=== PATIENT | female | born 1985 | race Caucasian/White ===

== ENCOUNTER 2016-08-12 02:47 | Inpatient (IN) | payer BC ==
[2016-08-12] VITALS (24 sets, daily range): BP systolic 18–138; BP diastolic 59–86; PULSE 71–104; TEMP 97.5–98.7
[~2016-08-12] VITALS: Ht 162.6 cm; Wt 121.8 kg
[2016-08-12] MEDS ORDERED: PRENATAL1 TA7 PO (02:59)
[2016-08-12] MEDS ORDERED: MOTRIN 800800 MG/TAB PO (03:29)
[2016-08-12] MEDS ORDERED: PERCOCET 325 MG1 TA2 PO (03:29)
[2016-08-12 04:48] LABS: BASO % 0.3 % (0.0-2.0); EOS # 0.1 (0.0-0.7); EOS % 0.5 % (0-4.0); GRAN % 68.2 % (42.2-75.2); LYMPH # 3.3 (1.2-3.4); LYMPH % 24.7 % (20.0-51.0); MEAN CELL VOLUME 92 fl (80.0-100.0); MEAN CORPUSCULAR HGB CONC 33 g/dl (33.0-37.0); MEAN PLATELET VOLUME 11.1 fl (7.4-10.4); MONO # 0.7 (0.1-0.6); MONO % 5.6 % (1.7-9.3); PLATELET COUNT 241 K/mm3 (130-400); RED BLOOD COUNT 3.73 M/mm3 (4.10-5.30); REDCELL DISTRIBUTION WIDTH-CV 14.1 % (11.5-14.5); WHITE BLOOD COUNT 13.2 K/mm3 (4.8-10.8)
[2016-08-12 04:50] LABS: HEMOGLOBIN 11.2 g/dl (12.5-16.0); MEAN CORPUSCULAR HEMOGLOBIN 30 pg (27.0-31.0)
[2016-08-12 04:51] LABS: HEMATOCRIT 34.4 % (37.0-47.0)
[2016-08-13 04:33] VITALS: BP 98/64; PULSE 74; TEMP 97.7
[2016-08-13 07:00] VITALS: BP 115/78; PULSE 71; TEMP 98.4
[2016-08-13 15:52] VITALS: BP 122/78; PULSE 70; TEMP 98
[2016-08-13 20:00] VITALS: BP 128/86; PULSE 78; TEMP 97.8
[2016-08-14 10:30] VITALS: BP 120/72; PULSE 68; TEMP 98.3
== END 2016-08-14 13:00 | disposition home or self-care (01) | DRG 775 ==
LOC: LDRO 02:47 → OB 03:10 → LDR 03:10 → OB 08:30
PROVIDERS: Obstetrics & Gynecology
PROC: 10E0XZZ Delivery of Products of Conception, External Approach (ICD-10-PCS; principal; 2016-08-12)
DX: O26.893 Other specified pregnancy related conditions, third trimester (principal); Z68.42 Body mass index [BMI] 45.0-49.9, adult; O99.214 Obesity complicating childbirth; E66.9 Obesity, unspecified; K21.9 Gastro-esophageal reflux disease without esophagitis; Z3A.38 38 weeks gestation of pregnancy; Z37.0 Single live birth
CPT/HCPCS: J2590; J7120

== ENCOUNTER → 2016-08-17 | Outpatient (CLI) | payer BC ==
[~2016-08-17] MED LIST: IBU800 M1 PO; MOTRIN 800800 MG/TAB PO; PERCOCET 325 MG1 TA2 PO; PRENATAL1 TA7 PO
== END ==
LOC: OLC 15:04
DX: Z39.1 Encounter for care and examination of lactating mother (principal); Z71.89 Other specified counseling

== ENCOUNTER 2016-09-02 18:12 | Emergency (ER) | payer BC ==
[~2016-09-02] VITALS: Ht 162.6 cm; Wt 112.7 kg
[~2016-09-02 18:12] MED LIST changes: -IBU800 M1 PO
[2016-09-02 18:17] VITALS: TEMP 98
[2016-09-02] MEDS ORDERED: IBU800 M1 PO (18:29)
[2016-09-02 19:19] VITALS: BP 100/80; PULSE 92
== END 2016-09-02 19:19 | disposition home or self-care (01) ==
LOC: COL.ER 18:12
DX: S93.601A Unspecified sprain of right foot, initial encounter (principal); W01.198A Fall on same level from slipping, tripping and stumbling with subsequent striking against other object, initial encounter; Y92.009 Unspecified place in unspecified non-institutional (private) residence as the place of occurrence of the external cause

== ENCOUNTER 2017-02-17 13:17 | Emergency (ER) | payer OTHER, BC ==
[~2017-02-17] VITALS: Ht 162.6 cm; Wt 102.3 kg
[~2017-02-17 13:17] MED LIST changes: +IBU800 M1 PO
[2017-02-17 13:25] VITALS: BP 127/78; TEMP 98.5
[2017-02-17 15:12] VITALS: PULSE 90
== END 2017-02-17 15:14 | disposition home or self-care (01) ==
LOC: COL.ER 13:17
DX: S80.02XA Contusion of left knee, initial encounter (principal); V43.52XA Car driver injured in collision with other type car in traffic accident, initial encounter

== ENCOUNTER 2019-04-09 16:01 | Emergency (ER) | payer BC ==
[~2019-04-09] VITALS: Ht 162.6 cm; Wt 103.6 kg
[2019-04-09 16:26] VITALS: BP 110/62
[2019-04-09 19:25] VITALS: PULSE 92; TEMP 99.4
[2019-04-09] MEDS ORDERED: DESYREL 100MG100 MG PO (19:25)
[2019-04-09 19:31] LABS: STREP SCREEN NEGATIVE
[2019-04-09] MEDS ORDERED: TAMIFLU 75MG75 MG PO (19:33)
== END 2019-04-09 19:36 | disposition home or self-care (01) ==
LOC: COL.ER 16:01
PROVIDERS: Nurse Practitioner
DX: J11.1 Influenza due to unidentified influenza virus with other respiratory manifestations (principal); Z88.0 Allergy status to penicillin; Z88.1 Allergy status to other antibiotic agents

== ENCOUNTER 2019-11-11 19:08 | Emergency (ER) | payer BC ==
[~2019-11-11] VITALS: Ht 162.6 cm; Wt 99.5 kg
[~2019-11-11 19:08] MED LIST changes: +DESYREL 100MG100 MG PO; +TAMIFLU 75MG75 MG PO
[2019-11-11 19:18] VITALS: TEMP 98.3
[2019-11-11] MEDS ORDERED: PROZAC40 MG PO (19:35)
[2019-11-11] MEDS ORDERED: MACRODANTIN100 PO (19:36)
[2019-11-11] MEDS ORDERED: TYLENOL W/COD1 UDTAB PO (19:36)
[2019-11-11 20:08] LABS: COLLECTION METHOD CLEAN CATCH
[2019-11-11 20:12] LABS: BASO % 0.4 % (0.0-2.0); EOS # 0.2 (0.0-0.7); EOS % 1.5 % (0-4.0); GRAN # 7.5 (1.4-6.5); GRAN % 67.9 % (42.2-75.2); HEMOGLOBIN 12.1 g/dl (12.5-16.0); LYMPH # 2.8 (1.2-3.4); LYMPH % 25.4 % (20.0-51.0); MEAN CELL VOLUME 93 fl (80.0-100.0); MEAN CORPUSCULAR HEMOGLOBIN 31 pg (27.0-31.0); MEAN CORPUSCULAR HGB CONC 33 g/dl (33.0-37.0); MEAN PLATELET VOLUME 10.6 fl (7.4-10.4); MONO # 0.5 (0.1-0.6); MONO % 4.5 % (1.7-9.3); PLATELET COUNT 252 K/mm3 (130-400); RED BLOOD COUNT 3.96 M/mm3 (4.10-5.30); REDCELL DISTRIBUTION WIDTH-CV 12.5 % (11.5-14.5)
[2019-11-11 20:26] LABS: ALBUMIN 4.3 gm/dL (3.5-5.0); BILIRUBIN,TOTAL 0.5 mg/dL (0.0-1.0); CREATININE, serum 0.89 (0.52-1.25); POTASSIUM 3.9 mmol/L (3.4-5.0); TOTAL PROTEIN 7.3 gm/dL (6.4-8.2)
[2019-11-11 20:40] LABS: MUCOUS Present /lpf; PH 5 (5-8); URINE APPEARANCE Hazy; URINE BACTERIA Rare /hpf; URINE BILIRUBIN Negative (NEGATIVE); URINE BLOOD 2+ (NEGATIVE); URINE COLOR Yellow; URINE GLUCOSE Negative (NEGATIVE); URINE KETONE Trace (NEGATIVE); URINE LEUKOCYTE ESTERASE Negative (NEGATIVE); URINE NITRATE Negative (NEGATIVE); URINE PROTEIN(semi-quant) Negative (NEGATIVE); URINE UROBILINOGEN Negative (NEGATIVE)
[2019-11-11] MEDS ORDERED: ZOFRAN 4MG T4 MG/TAB PO (21:13)
[2019-11-11] MEDS ORDERED: NORCO 325 MG-51 TAB PO (21:13)
[2019-11-11] MEDS ORDERED: COMPAZINE 110 MG/TAB PO (21:13)
[2019-11-11 21:23] VITALS: BP 96/63; PULSE 61
== END 2019-11-11 21:28 | disposition home or self-care (01) ==
LOC: COL.ER 19:08
PROVIDERS: Emergency Medicine
DX: R10.9 Unspecified abdominal pain (principal); F32.9 Major depressive disorder, single episode, unspecified; F41.9 Anxiety disorder, unspecified; Z98.51 Tubal ligation status; Q63.8 Other specified congenital malformations of kidney
CPT/HCPCS: J0780; J1885; J2405

== ENCOUNTER → 2019-11-28 | Outpatient (CLI) | payer BC ==
[~2019-11-28] MED LIST changes: +COMPAZINE 110 MG/TAB PO; +MACRODANTIN100 PO; +NORCO 325 MG-51 TAB PO; +PROZAC40 MG PO; +TYLENOL W/COD1 UDTAB PO; +ZOFRAN 4MG T4 MG/TAB PO
== END ==
LOC: COL.RAD 09:44
DX: R10.11 Right upper quadrant pain (principal)
CPT/HCPCS: A9537; J2805

== ENCOUNTER → 2019-12-11 | Day surgery (SDC) | payer BC ==
[~2019-12-11] VITALS: Ht 162.6 cm; Wt 100.1 kg
[~2019-12-11] MED LIST changes: +MOTRIN 600600 MG/TAB PO; +TORADOL 10MG TA10 MG PO; +ULTRAM 50MG TAB50 MG PO
[2019-12-11 12:44] VITALS: BP 103/627; PULSE 75; TEMP 98.3
[2019-12-11 16:25] VITALS: BP 103/67; PULSE 64; TEMP 97.5
--- NOTE | 2019-12-11 16:25 | NUR ---
TO RM 7 PER CART FROM PACU. C/O BEING COLD. RECEIVED ADDITIONAL BLANKETS. ALERT ORIENTED X3, TALKING TO STAFF AND SIGNIFICANT OTHER. RECEIVED WATER. INCISON SITES COVERED WITH KINCAID SET. NO DRAINAGE OR BLEEDING. RECEIVED WATER AND TAKING SIPS.
[2019-12-11 16:30] VITALS: TEMP 97.5
[2019-12-11 16:40] VITALS: BP 110/71; PULSE 72
--- NOTE | 2019-12-11 16:40 | NUR ---
RECEIVED APPLE SAUCE AND SAT UP A LITTLE MORE IN BED. MORE AWAKE AND TALKING TO SIGNIFICANT OTHER.
[2019-12-11 16:55] VITALS: BP 97/64; PULSE 67
--- NOTE | 2019-12-11 17:00 | NUR ---
C/O INCREASE IN PAIN. 5/10 AFTER SITTING UP. RECEIVED NORCO 5MG PO. ATE 100% OF APPLE SAUCE.
[2019-12-11 17:12] VITALS: BP 98/69; PULSE 71
--- NOTE | 2019-12-11 17:12 | NUR ---
DENIES NAUSEA. C/O PAIN 05/19 AT CURRENT TIME.
--- NOTE | 2019-12-11 17:28 | NUR ---
PATIENT STATED SHE IS FEELING PRETTY GOOD. RECEIVED A VANILLA PUDDING..
--- NOTE | 2019-12-11 17:30 | NUR ---
AMBULATED TO BATHROOM WITH ASSIST. VOIDED AND AMBULATED BACK TO BED. TOLERATED WELL AND ASKING TO GO HOME.
--- NOTE | 2019-12-11 17:44 | NUR ---
RECEIVED DISCHARGE INSTRUCTIONS AND VERBALIZED UNDERSTANDING. DISCONTINUED IV AND INT- CATHETER INTACT PATIENTS SIGNIFICANT OTHER ASSISTING PATIENT DRESSED.
--- NOTE | 2019-12-11 17:59 | NUR ---
DISCHARGED PER WC BY NURSING STAFF TO PRIVATE CAR IN CARE OF IVONNE LI.
== END ==
LOC: SDCO 11:54
DX: K80.10 Calculus of gallbladder with chronic cholecystitis without obstruction (principal); F41.9 Anxiety disorder, unspecified; F32.9 Major depressive disorder, single episode, unspecified; Z80.1 Family history of malignant neoplasm of trachea, bronchus and lung; Z88.0 Allergy status to penicillin; K82.8 Other specified diseases of gallbladder; Z20.828 Contact with and (suspected) exposure to other viral communicable diseases
CPT/HCPCS: J1100; J1170; J1885; J2405; J2704; J3010

== ENCOUNTER 2020-09-25 20:07 | Emergency (ER) | payer BC ==
[~2020-09-25] VITALS: Ht 162.6 cm; Wt 89.1 kg
[2020-09-25 20:32] VITALS: TEMP 98.4
[2020-09-25 22:36] LABS: BASO # 0.1 (0.0-0.2); BASO % 0.5 % (0.0-2.0); EOS # 0.1 (0.0-0.7); EOS % 1.5 % (0-4.0); GRAN # 6.3 (1.4-6.5); GRAN % 65.8 % (42.2-75.2); HEMATOCRIT 39.3 % (37.0-47.0); LYMPH # 2.7 (1.2-3.4); LYMPH % 27.8 % (20.0-51.0); MEAN CELL VOLUME 95 fl (80.0-100.0); MEAN CORPUSCULAR HEMOGLOBIN 31 pg (27.0-31.0); MEAN CORPUSCULAR HGB CONC 33 g/dl (33.0-37.0); MEAN PLATELET VOLUME 10.2 fl (7.4-10.4); MONO # 0.4 (0.1-0.6); MONO % 4.2 % (1.7-9.3); PLATELET COUNT 284 K/mm3 (130-400); RED BLOOD COUNT 4.15 M/mm3 (4.10-5.30); REDCELL DISTRIBUTION WIDTH-CV 12.9 % (11.5-14.5)
[2020-09-25 22:47] LABS: ALBUMIN 4.2 gm/dL (3.5-5.0); BILIRUBIN,TOTAL 0.4 mg/dL (0.0-1.0); CALCIUM 9.6 mg/dL (8.4-10.2); CREATININE, serum 0.82 (0.52-1.25); POTASSIUM 3.9 mmol/L (3.4-5.0); TOTAL PROTEIN 7.7 gm/dL (6.4-8.2)
[2020-09-25 22:56] LABS: COLLECTION METHOD CLEAN CATCH
[2020-09-25 23:02] LABS: PH 7 (5-8); SQUAMOUS EPITHELIAL 0-2 /hpf; URINE APPEARANCE Clear; URINE BACTERIA None Seen /hpf; URINE BILIRUBIN Negative (NEGATIVE); URINE BLOOD 2+ (NEGATIVE); URINE COLOR Yellow; URINE GLUCOSE Negative (NEGATIVE); URINE KETONE Negative (NEGATIVE); URINE LEUKOCYTE ESTERASE Negative (NEGATIVE); URINE NITRATE Negative (NEGATIVE); URINE PROTEIN(semi-quant) Negative (NEGATIVE); URINE UROBILINOGEN Negative (NEGATIVE)
[2020-09-25] MEDS ORDERED: ZOFRAN ODT4 MG PO (23:39)
[2020-09-25] MEDS ORDERED: BENTYL 10MG10 MG/CAP PO (23:39)
[2020-09-25] MEDS ORDERED: PEPCID 20MG TAB20 MG PO (23:43)
[2020-09-26 00:12] VITALS: BP 148/70; PULSE 78
== END 2020-09-26 00:12 | disposition home or self-care (01) ==
LOC: COL.ER 20:07
PROVIDERS: Emergency Medicine
DX: R10.9 Unspecified abdominal pain (principal); R11.2 Nausea with vomiting, unspecified; F41.9 Anxiety disorder, unspecified; Z90.49 Acquired absence of other specified parts of digestive tract; Z20.822 Contact with and (suspected) exposure to COVID-19; Z32.02 Encounter for pregnancy test, result negative; Z79.899 Other long term (current) drug therapy
CPT/HCPCS: J0500; J2405; J7120

== ENCOUNTER 2023-04-12 21:55 | Emergency (ER) | payer OTHER ==
[~2023-04-12] VITALS: Ht 162.6 cm; Wt 97.7 kg
[~2023-04-12 21:55] MED LIST changes: +BENTYL 10MG10 MG/CAP PO; +PEPCID 20MG TAB20 MG PO; +ZOFRAN ODT4 MG PO
[2023-04-12 22:15] VITALS: TEMP 98.6
[2023-04-13] MEDS ORDERED: NS 1,000 ML IV ONE (00:15)
[2023-04-13] MEDS ORDERED: Ondansetron 4 MG/2 ML VIAL IV ONE (00:15)
[2023-04-13 01:40] LABS: BASO # 0.1 K/mm3 (0.0-0.2); BASO % 0.4 % (0.0-2.0); EOS # 0.1 K/mm3 (0.0-0.7); GRAN # 8.5 K/mm3 (1.4-6.5); HEMOGLOBIN 13.6 g/dl (12.5-16.0); LYMPH # 2.3 K/mm3 (1.2-3.4); LYMPH % 19.8 % (20.0-51.0); MEAN CELL VOLUME 95 fl (80.0-100.0); MEAN CORPUSCULAR HEMOGLOBIN 31 pg (27-31); MEAN CORPUSCULAR HGB CONC 33 g/dl (33.0-37.0); MEAN PLATELET VOLUME 9.9 fl (7.4-10.4); MONO # 0.5 K/mm3 (0.1-0.6); MONO % 4.5 % (1.7-9.3); PLATELET COUNT 310 K/mm3 (130-400); RED BLOOD COUNT 4.33 M/mm3 (4.10-5.30); REDCELL DISTRIBUTION WIDTH-CV 13.1 % (11.5-14.5)
[2023-04-13] MEDS ORDERED: diphenhydrAMINE 50 MG/ML 1 ML VIAL IV ONE (01:45)
[2023-04-13 02:04] LABS: ALBUMIN 3.7 gm/dL (3.5-5.0); BILIRUBIN,TOTAL 0.9 mg/dL (0.2-1.2); C-REACTIVE PROTEIN 0.76 mg/dL (0.00-0.50); CALCIUM 9.4 mg/dL (8.4-10.2); CREATININE, serum 0.8 mg/dL (0.57-1.11); POTASSIUM 3.8 mmol/L (3.5-4.5); TOTAL PROTEIN 7.2 gm/dL (6.2-8.1)
[2023-04-13] MEDS ORDERED: ZOFRAN ODT4 MG PO (02:28)
[2023-04-13] MEDS ORDERED: Home Ondansetron ODT 4 MG #2 ODT/PACK PO ONE (02:30)
[2023-04-13 02:42] VITALS: BP 128/82; PULSE 73
== END 2023-04-13 02:54 | disposition home or self-care (01) ==
LOC: COL.ER 21:55
PROVIDERS: Emergency Medicine
DX: R11.2 Nausea with vomiting, unspecified (principal); R51.9 Headache, unspecified; D72.829 Elevated white blood cell count, unspecified
CPT/HCPCS: J0780; J1200; J2405; J7030